=== PATIENT | male | born 1975 | race Two or more races ===

== ENCOUNTER 2022-10-31 18:36 | Emergency (ER) | payer OTHER ==
[2022-10-31 19:22] VITALS: BP 135/97; PULSE 67; RESP 18; TEMP 98.8; BMI 27.8
== END 2022-10-31 20:23 | disposition home or self-care (01) ==
LOC: FER 18:36
DX: G90.09 Other idiopathic peripheral autonomic neuropathy (principal); M79.641 Pain in right hand
CPT/HCPCS: 99283-25

== ENCOUNTER 2022-11-01 12:13 | Emergency (ER) | payer OTHER ==
[2022-11-01 12:30] VITALS: BP 130/87; PULSE 78; RESP 18; TEMP 98.4; BMI 27.8
[2022-11-01] MEDS ORDERED: diazePAM 5 MG TABLET PO ONE (12:56)
[2022-11-01] MEDS ORDERED: DEXAMETHASONE SOD PHOSPHATE 4 MG/1 ML VIAL IM ONE (12:56)
[2022-11-01] MEDS ORDERED: DEXAMETHASONE SOD PHOSPHATE 4 MG/1 ML VIAL ONE (12:58)
[2022-11-01] MEDS ORDERED: diazePAM 5 MG TABLET ONE (12:58)
== END 2022-11-01 14:20 | disposition home or self-care (01) ==
LOC: FER 12:13
PROC: 3E023GC Introduction of Other Therapeutic Substance into Muscle, Percutaneous Approach (ICD-10-PCS; principal; 2022-11-01)
DX: G90.09 Other idiopathic peripheral autonomic neuropathy (principal)
CPT/HCPCS: 73110-TC-RT-FY; 99284-25